=== PATIENT | female | born 1985 | race Two or more races ===

== ENCOUNTER 2017-08-01 10:36 | Emergency (ER) | payer OTHER ==
[~2017-08-01] VITALS: Ht 165.1 cm; Wt 75.0 kg
[~2017-08-01 10:36] MED LIST: METR-1 PO; VIBR50SY PO; Z.0.NO CURRENT MEDS
[2017-08-01 10:59] VITALS: BP 125/89; PULSE 78; RESP 18; TEMP 98.4; O2SAT 100
[2017-08-01 12:08] LABS: BILIRUBIN, URINE NEG (NEG); BLOOD, URINE NEG (NEG); GLUCOSE,URINE NEG (NEG); KETONE, URINE NEG (NEG); MUCUS URINE FEW /lpf (OCC); NITRITE,URINE NEG (NEG); SQUAMOUS EPITHELIAL CELL URINE 1 /hpf (0-5); URINE COLOR YELLOW (YELLW/STRAW); URINE LEUKOCYTE ESTERASE NEG (NEG)
--- NOTE | 2017-08-01 12:11 | PD ---
HPI . Pelvic pain Chief Complaint: Related Problem Time Seen by Provider: 11:03 Travel History International Travel<30 days: No Contact w/Intl Traveler<30days: No Traveled to known affect area: No History of Present Illness HPI History is very difficult because of a language barrier. The patient reports that she is 11 weeks . She has been seen by OB and had an ultrasound done by the on 07/28 which showed an IUP. She comes in to us today complaining with some pelvic discomfort, dysuria and brown vaginal discharge. Onset has been a couple of days. Symptoms have been constant with no exacerbating or relieving factors. Pain is rated 5/10. PFSH Past Medical History Medical History: Denies Significant Hx ?: LMP: 05/12/17 : 0 Social History Alcohol Use: No Tobacco Use: No Substance Use: No Allergies-Medications (Allergen,Severity, Reaction): Coded Allergies: No Known Allergies (Unverified Adverse Reaction, Unknown, 08/01/17) Reported Meds & Prescriptions Reported Meds & Active Scripts Active Vibramycin (Doxycycline Calcium) 50 Mg/5 Ml Syp 100 Mg PO BID 10 Days Flagyl (Metronidazole) 500 Mg Tab 500 Mg PO BID Reported No Current Meds (Miscellaneous Medication) Misc Review of Systems Except as stated in HPI: all other systems reviewed are Neg Physical Exam Narrative GENERAL: Awake and alert and in no acute distress. SKIN: Warm and dry. HEAD: Normocephalic/atraumatic. EYES: Pupils are equal. Extraocular movements are intact. NECK: Normal range of motion. CARDIOVASCULAR: Regular rate and rhythm. RESPIRATORY: Nonlabored respirations. : I did a cath UA at the time of the pelvic exam because she was unable to urinate. The cath urine is clear. She has a brown discharge in the vaginal vault. The cervical loss is closed. I am not really able to determine whether or not she has bimanual tenderness. MUSCULOSKELETAL: Atraumatic. NEUROLOGICAL: Nonfocal. PSYCHIATRIC: Appropriate mood and affect. Data Data Last Documented VS Vital Signs Date Time Temp Pulse Resp B/P (MAP) Pulse Ox O2 Delivery O2 Flow Rate FiO2 08/01/17 10:59 98.4 78 18 125/89 (101) 100 Orders Orders Gc And Chlamydia Pcr (08/01/17 11:04) Wet Prep Profile (08/01/17 11:04) Urinalysis - C+S If Indicated (08/01/17 11:04) Ed Poc Ultrasound (08/01/17 11:21) Labs Laboratory Tests Test 08/01/17 11:23 Urine Color YELLOW Urine Turbidity CLEAR Urine pH 6.0 Urine Specific [place] 1.012 Urine Protein NEG mg/dL Urine Glucose (UA) NEG mg/dL Urine Ketones NEG mg/dL Urine Occult Blood NEG Urine Nitrite NEG Urine Bilirubin NEG Urine Urobilinogen LESS THAN 2.0 MG/DL Urine Leukocyte Esterase NEG Urine RBC 1 /hpf Urine WBC 1 /hpf Urine Squamous Epithelial Cells 1 /hpf Urine Mucus FEW /lpf Microscopic Urinalysis Comment CULT NOT INDICATED Clue Cells (Wet Prep) NONE SEEN Vaginal Trichomonas (Wet Prep) NONE SEEN Vaginal Yeast (Wet Prep) NONE SEEN MDM Medical Decision Making Medical Screen Exam Complete: Yes Emergency Medical Condition: Yes Differential Diagnosis Differential diagnosis of pelvic pain includes but is not limited to UTI, PID, ectopic , spontaneous AB, constipation, viral illness Narrative Course This is a patient who is 11 weeks who presents with pelvic discomfort, dysuria and a brown vaginal discharge. History and physical are difficult because of a language barrier. UA and wet prep are negative. 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 Procedures Procedure Narrative Emergency Department Pelvic ultrasound was performed with patient consent. The curvilinear probe was used in the transverse and sagittal views within the suprapubic region revealing positive intrauterine . I was able to visualize a rapid heart rate but the baby was moving around so much that I was unable to actually count the heart rate. There is positive movement. Diagnosis Primary Impression: Pelvic pain affecting Qualified Codes: O26.891 - Other specified related conditions, first trimester; R10.2 - Pelvic and perineal pain Patient Instructions: Abdominal Pain in (ED), General Instructions Additional Instructions: See your OB doctor next week. No sexual intercourse until seen by OB. Disposition: 01 DISCHARGE HOME Condition: Stable Deedee Sun MD August 01, 2017 12:11
== END 2017-08-01 12:25 | disposition home or self-care (01) ==
LOC: NEPD 10:36
DX: O26.891 Other specified pregnancy related conditions, first trimester (principal); Z3A.11 11 weeks gestation of pregnancy
CPT/HCPCS: 81001; 87210; 87491; 87591; 99284